=== PATIENT | male | born 1950 | race Caucasian/White ===

== ENCOUNTER → 2016-08-20 | Outpatient (CLI) | payer OTHER ==
[~2016-08-20] MED LIST: ALBUAER19 INH; ASPEC81 PO; ASPI325T45 PO; BIOF500T PO; BUSP5TAB59 PO; CHOL100027 PO; CHOLTAB3 PO; CLR10 PO; DILT0.05 PO; DOXE10CA PO; FLUT0.0529 NEB; FLUT0.15 NAE; GABA-112 PO; HYD50 PO; HYDR25TA5 PO; LYSI500C2 PO; MULT-225 PO; MULT-884 PEG; NALO1TAB PO; OXYC1TAB3 PO; SENN-61 PO; SERT50TA PO; SNG10 PO; VNTHFA/IN INH; ZLF/50 PO; ZOLP5TAB PO
--- NOTE | 2016-08-20 09:16 | DIAGNOSTIC IMAGING REPORT ---
CHEST 2 VIEWS ROUTINE CLINICAL HISTORY: Acute bronchitis. COMPARISON STUDY: No previous studies for comparison. FINDINGS: Lung volumes are normal. No consolidation is identified and there is no evidence of pulmonary edema. Cardiac size is at the upper limits of normal. No pneumothorax or pleural effusion is identified. A 9 mm nodular density projects over the right lower lung. IMPRESSION: 1. No acute cardiopulmonary findings. 2. 9 mm nodular density which projects over the right lower lung. This could reflect a nipple shadow or pulmonary nodule. Follow-up PA and shallow oblique radiographs of the chest with nipple markers are recommended. Electronically signed by: George Banegas M.D. 08/20/2016 9:14 AM
--- NOTE | 2016-08-20 14:33 | DIAGNOSTIC IMAGING REPORT ---
Chest including oblique views (3 views) CLINICAL HISTORY: Abnormal chest x-ray. Pulmonary nodule. COMPARISON STUDY: 08/20/2016 FINDINGS: The cardiac images all contours remain stable. The examination was performed with nipple markers. The recently described 9 mm right lower lung zone opacity corresponds the patient's right nipple. IMPRESSION: No active disease in the chest. The right lower lung zone opacity corresponds the patient's right nipple Electronically signed by: George Haskins M.D. 08/20/2016 2:31 PM
== END | disposition home or self-care (01) ==
LOC: C.RAD1850 09:00
PROVIDERS: ATTEND Internal Medicine
DX: J20.9 Acute bronchitis, unspecified (principal); R93.8 Abnormal findings on diagnostic imaging of other specified body structures

== ENCOUNTER → 2016-10-22 | Outpatient (CLI) | payer OTHER ==
[~2016-10-22] MED LIST changes: -DOXE10CA PO; -GABA-112 PO; -NALO1TAB PO; -OXYC1TAB3 PO; -SENN-61 PO
[2016-10-22 09:50] LABS: ALT/SGPT 30 U/L (12-78); AST/SGOT 15 U/L (15-37); BLOOD UREA NITROGEN 19 mg/dl (7-18); CALCIUM 9.2 mg/dl (8.5-10.1); CARBON DIOXIDE 30 mmol/L (21-32); CHLORIDE 105 mmol/L (98-107); GLUCOSE 110 mg/dl (70-99); POTASSIUM 4.4 mmol/L (3.5-5.1); SODIUM 141 mmol/L (136-145)
[2016-10-22 09:53] LABS: CHOLESTEROL 172 mg/dl (0-200); CHOLESTEROL/HDL RATIO 5.1; HDL CHOLESTEROL 34 mg/dl; LDL CHOLESTEROL CALCULATED 99 mg/dl; TRIGLYCERIDES 197 mg/dl (0-150); VERY LOW DENSITY LIPOPROT CALC 39 mg/dl
[2016-10-22 10:10] LABS: ESTIMATED AVERAGE GLUCOSE 111 mg/dl; HA1C FLAG Normal (Normal)
--- NOTE | 2016-10-28 12:59 | CODING QUERY MEDICAL NECESSITY ---
SUPPORTING DIAGNOSIS NEEDED A supporting diagnosis is required for the test/procedure performed on this patient in order for us to be reimbursed by the patient's insurance. Please provide a supporting diagnosis for the following test/procedure listed below next to the test name along with your signature. *If there is no additional diagnosis for this patient that would support the following test/procedure please document that below next to the test/procedure. Test(s)/Procedure(s) that require a supporting diagnosis: * GLYCATED HEMOGLOBIN DIAGNOSIS: * DOS: 10/22/16 Provider Signature: Date: Thank you Sammi Jones Health Information Management Once completed, please kindly fax back to [phone] For questions please call [phone]
== END | disposition home or self-care (01) ==
LOC: C.LAB1850 08:05
PROVIDERS: ATTEND Internal Medicine
DX: E78.1 Pure hyperglyceridemia (principal); I10 Essential (primary) hypertension; R73.03 Prediabetes

== ENCOUNTER 2017-04-27 23:50 | Inpatient (IN) | payer OTHER ==
[~2017-04-27] VITALS: Ht 182.9 cm; Wt 99.4 kg
[~2017-04-27 23:50] MED LIST changes: -ASPI325T45 PO; -CHOL100027 PO; -FLUT0.15 NAE; -HYDR25TA5 PO; -MULT-225 PO; -SNG10 PO; -VNTHFA/IN INH; -ZLF/50 PO
[2017-04-28] VITALS (7 sets, daily range): BP systolic 140–168; BP diastolic 80–88; PULSE 64–78; TEMP 36.9–37.1; O2SAT 91–95; Ht 182.9 cm; Wt 99.4 kg
[2017-04-28] MEDS ORDERED: HYDROmorphone INJ 1 MG/ML SYR IV STA (00:06)
[2017-04-28] MEDS ORDERED: SODIUM CHLORIDE 0.9% 1000ML 1,000 ML IV STA (00:06)
[2017-04-28] MEDS ORDERED: ONDANSETRON INJ 2 MG/ML 2 ML VIAL IV STA (00:06)
[2017-04-28] MEDS ORDERED: OPTIRAY 320 IV PRN (00:15)
--- NOTE | 2017-04-28 00:20 | EMERGENCY ROOM VISIT NOTE ---
History Report prepared by Marlo: Armand Barroso Under the Supervision of: Dr. Jossue Gardner M.D. First contact with patient: 00:00 Chief Complaint: ABDOMINAL PAIN Stated Complaint: STOMACH AND BACK PAIN History of Present Illness The patient is a 66 year old male who presents to the Emergency Room with complaints of worsening abdominal pain beginning a week ago. He currently rates his discomfort a 10/10 in severity. The patient states that his discomfort started in his back and radiated to his abdomen. He reports that he has a decreased appetite and nausea secondary to pain. The patient notes that he saw his doctor this morning and was told that his abdomen was "puffy" and report to the ED if symptoms worsened. He states that this evening he started vomiting, so he came to the ED. The patient denies hematemesis, diarrhea, rash, chemical exposure, leg edema, and hematochezia. He reports that he has an ultrasound of his abdomen scheduled on Thursday. The patient notes that he has a history of Hepatitis-C, went through all the treatment, and was declared cured. He states that he drinks a beer or two daily, and he does not drink more on the weekends. The patient reports that he does not have anything at home for pain, and he denies a history of abdominal surgeries. Source of History: patient Onset: week ago Position: abdomen Symptom Intensity: 10/10 Timing: worsening Associated Symptoms: + nausea (secondary to pain), + vomiting, + back pain, No hematochezia, No diarrhea, No rash Note: Denies: hematemesis, chemical exposure, and leg edema Review of Systems See HPI for pertinent positives & negatives. A total of 10 systems reviewed and were otherwise negative. Past Medical & Surgical Medical Problems: (1) Abdominal pain (2) Hepatic vein thrombosis (3) Hepatitis C Family History Patient reports no known family medical history. Social History Smoking Status: Current Some Day Smoker Alcohol Use: occasionally Marital Status: Housing Status: lives with significant other Occupation Status: retired Current/Historical Medications Scheduled Aspirin (Aspirin), 325 MG PO DAILY Bioflavonoid Products (Yue-C), 1 TAB PO DAILY Cholecalciferol (Vitamin D 1000 Unit), 1,000 INTER.UNIT PO DAILY Diltiazem HCl Coated Beads (Diltiazem HCl ER), 180 MG PO BID Fluticasone Propionate (Nasal) (Flonase Allergy Relief), 1-2 SPRAYS EFRA DAILY Hydrochlorothiazide (Hydrochlorothiazide), 25 MG PO DAILY Montelukast Sod (Montelukast Sodium), 10 MG PO DAILY Multiple Vitamin (Multi-Day Vitamins), 1 TAB PO DAILY Sertraline HCl (Sertraline HCl), 50 MG PO DAILY Scheduled PRN Albuterol Hfa (Ventolin Hfa), 1-2 PUFFS INH Q6H PRN for SOB/Wheezing Loratadine (Claritin), 10 MG PO DAILY PRN for allergies Zolpidem Tartrate (Ambien), 5 MG PO HS PRN for Insomnia Allergies Coded Allergies: No Known Allergies (Unverified , 04/27/17) Physical Exam Vital Signs Date Time Temp Pulse Resp B/P (MAP) Pulse Ox O2 Delivery O2 Flow Rate FiO2 04/28/17 03:09 68 18 137/82 92 04/28/17 03:02 68 18 137/82 92 Room Air 04/28/17 01:49 74 18 149/78 94 Room Air 04/27/17 23:53 36.6 82 18 164/83 95 Room Air Physical Exam GENERAL: Patient is uncomfortable appearing and in moderate distress. HEENT: No acute trauma, normocephalic atraumatic, mucous membranes moist, no nasal congestion, no scleral icterus. NECK: No stridor, no adenopathy, no meningismus, trachea is midline. LUNGS: No dyspnea. Clear to auscultation and equal bilaterally. No wheeze, no rhonchi. HEART: Regular rate and rhythm. No murmurs, rubs, gallops appreciated. ABDOMEN: Soft with vague bilateral lower abdominal tenderness upon palpation, bowel sounds positive, no masses appreciated, no peritonitis. BACK: No midline tenderness, no CVA tenderness EXTREMITIES: Normal motion all extremities, no cyanosis, no edema. NEUROLOGIC: Alert and oriented, no acute motor or sensory deficits, no focal weakness, cranial nerves grossly intact. SKIN: No rash, no jaundice, no diaphoresis. Medical Decision & Procedures ER Provider Diagnostic Interpretation: CT results as stated below per interpretation by me and the radiologist: Impression: Thrombus noted with the portal vein confluence extending throughout the right anterior and posterior portal veins. There is an ill-defined geographic hypodensity within the right hepatic lobe concerning for possible HCC given the cirrhotic appearing liver. This could be further evaluated with liver protocol CT or MRI with contrast. Addition finding: Visualized lower thorax demonstrates dependent atelectasis with small hiatal hernia. Layering density within the gallbladder lumen which may represent stones and/or sludge. Punctate calcification within the spleen which is mildly prominent. Pancreas and adrenal glands are unremarkable. Probable cysts within both kidneys. No hydronephrosis. Urinary bladder is unremarkable. Appendix is unremarkable. Small bowel and colon are unremarkable. Trace free fluid within the pelvis. Evidence of prior right herniorrhaphy. No acute osseous abnormality. Radiologist: Matt Mosie MD Study ready at 0100 and initial results transmitted at 0121. Laboratory Results 04/28/17 00:20 Red Blood Count 4.58, Mean Corpuscular Volume 92.4, Mean Corpuscular Hemoglobin 30.8, Mean Corpuscular Hemoglobin Concent 33.3, Mean Platelet Volume 10.2, Neutrophils (%) (Auto) 75.0, Lymphocytes (%) (Auto) 14.4, Monocytes (%) (Auto) 7.9, Eosinophils (%) (Auto) 2.0, Basophils (%) (Auto) 0.3, Neutrophils # (Auto) 7.58, Lymphocytes # (Auto) 1.45, Monocytes # (Auto) 0.80, Eosinophils # (Auto) 0.20, Basophils # (Auto) 0.03 04/28/17 00:20 Test 04/28/17 00:20 White Blood Count 10.10 K/uL (4.8-10.8) Red Blood Count 4.58 M/uL (4.7-6.1) Hemoglobin 14.1 g/dL (14.0-18.0) Hematocrit 42.3 % (42-52) Mean Corpuscular Volume 92.4 fL (80-100) Mean Corpuscular Hemoglobin 30.8 pg (25-34) Mean Corpuscular Hemoglobin Concent 33.3 g/dl (32-36) Platelet Count 213 K/uL (130-400) Mean Platelet Volume 10.2 fL (7.4-10.4) Neutrophils (%) (Auto) 75.0 % Lymphocytes (%) (Auto) 14.4 % Monocytes (%) (Auto) 7.9 % Eosinophils (%) (Auto) 2.0 % Basophils (%) (Auto) 0.3 % Neutrophils # (Auto) 7.58 K/uL (1.4-6.5) Lymphocytes # (Auto) 1.45 K/uL (1.2-3.4) Monocytes # (Auto) 0.80 K/uL (0.11-0.59) Eosinophils # (Auto) 0.20 K/uL (0-0.5) Basophils # (Auto) 0.03 K/uL (0-0.2) RDW Standard Deviation 47.8 fL (36.4-46.3) RDW Coefficient of Variation 14.0 % (11.5-14.5) Immature Granulocyte % (Auto) 0.4 % Immature Granulocyte # (Auto) 0.04 K/uL (0.00-0.02) Prothrombin Time 10.8 SECONDS (9.0-12.0) Prothromb Time International Ratio 1.0 (0.9-1.1) Activated Partial Thromboplast Time 26.4 SECONDS (21.0-31.0) Partial Thromboplastin Ratio 1.0 Anion Gap 9.0 mmol/L (3-11) Est Creatinine Clear Calc Drug Dose 89.3 ml/min Estimated GFR () 92.1 Estimated GFR (Non- 79.5 BUN/Creatinine Ratio 16.6 (10-20) Calcium Level 9.3 mg/dl (8.5-10.1) Total Bilirubin 1.3 mg/dl (0.2-1) Direct Bilirubin 0.6 mg/dl (0-0.2) Aspartate Amino Transf (AST/SGOT) 189 U/L (15-37) Alanine Aminotransferase (ALT/SGPT) 218 U/L (12-78) Alkaline Phosphatase 343 U/L (45-117) Total Protein 7.7 gm/dl (6.4-8.2) Albumin 4.0 gm/dl (3.4-5.0) Lipase 152 U/L (73-393) Laboratory results as reviewed by me. Medications Administered Medications (Trade) Dose Ordered Sig/Lizandro Route Start Time Stop Time Status Last Admin Dose Admin Hydromorphone HCl (Dilaudid Inj) 1 mg NOW STAT IV 04/28/17 00:06 04/28/17 00:07 DC 04/28/17 00:24 1 MG Ondansetron HCl (Zofran Inj) 4 mg NOW STAT IV 04/28/17 00:06 04/28/17 00:07 DC 04/28/17 00:23 4 MG Sodium Chloride 1,000 ml @ 999 mls/hr Q1H1M STAT IV 04/28/17 00:06 04/28/17 01:06 DC 04/28/17 00:23 999 MLS/HR Heparin Sodium/ Dextrose 1 ea Q15M N/A 04/28/17 02:40 05/28/17 02:39 04/28/17 02:40 1 EA Heparin Sodium/ Dextrose (Heparin 25,000 Unit/500ml D5W) 25,000 unit STK-MED ONCE .ROUTE 04/28/17 02:56 04/28/17 02:57 DC 04/28/17 03:00 25,000 UNIT ED Course 0001: The patient was evaluated in room B10. A complete history and physical exam was performed. 0006: Ordered Sodium Chloride 1000 ml @ 999 mls/hr IV, Ondansetron HCl 4mg IV, Hydromorphone HCl 1mg IV 0119: I reevaluated the patient, and he is feeling better. I discussed current exam findings with the patient. 0126: I discussed the patient's case with Dr. Chaudhary [facility] Hospitalist. We discussed speaking with GI prior to evaluation. 0137: I discussed the patient's case with MICHOACANO Rodgers. He agrees with beginning work-up here, and the patient will be seen later today. 0141: Upon reevaluation, the patient is feeling better and resting. Discussed results and treatment plan with the patient. He verbalized understanding and agreement with the treatment plan. The patient will be evaluated for further management. 0216: I updated Dr. Chaudhary [facility] Hospitalist about the consult with MICHOACANO Rodgers. The patient will be evaluated for further treatment. Medical Decision Differential: Diverticulitis, Appendicitis, PUD/Gastritis, Biliary Pathology, Renal Colic, Bowel Obstruction, Aortic Pathology, amongst other pathologies entertained. 66 yr old male arrives with complaint of bilateral lower abdominal pain radiating to rest of abdomen as well as feeling of bloating of abdomen. Exam with some lower abdo TTP though not peritonitis. Labs from earlier with elevated LFTs which repeat here is similar. CT done given symptoms and abnormal labs resulting in findings of portal vein thrombus as well as possible right liver lobe HCC. With his history of Hep C, etoh, clot and findings in liver I am quite concerned this is cancer. I explained findings to patient and need for further work-up to determine exactly what is going on. He is agreeable to staying in hospital. Reviewed with GI who agree with initial work- up can be done here. Hospitalist to bring in for further work-up/treatment and will manage anticoagulation. Medication Reconcilliation Current Medication List: was personally reviewed by me Blood Pressure Screening Patient's blood pressure: Elevated blood pressure Monitored by hospitalist. Consults Time Called: 0125 Consulting Physician: Dr. Chaudhary [facility] Hospitalist Returned Call: 0126 I discussed the patient's case with Dr. Chaudhary [facility] Hospitalist. We discussed speaking with GI prior to evaluation. 0216: I updated Dr. Chaudhary [facility] Hospitalist about the consult with MICHOACANO Rodgers. The patient will be evaluated for further treatment. Additional Consults: Time Called: 0128 Consulted Physician: MICHOACANO Rodgers Returned Call: 0137 Additional Comments: I discussed the patient's case with MICHOACANO Rodgers. He agrees with beginning work-up here, and the patient will be seen later today. Impression Primary Impression: Portal vein thrombosis Additional Impressions: Liver mass Elevated LFTs Scribe Attestation The scribe's documentation has been prepared under my direction and personally reviewed by me in its entirety. I confirm that the note above accurately reflects all work, treatment, procedures, and medical decision making performed by me. Departure Information Dispostion Being Evaluated By Hospitalist Referrals Mario Alberto Stevens M.D. (PCP) Patient Instructions [facility] Problem Qualifiers
[2017-04-28 00:38] LABS: BASO % 0.3 %; BASO ABS # 0.03 K/uL (0-0.2); COMPLETE YES; HEMATOCRIT 42.3 % (42-52); IG% 0.4 %; LYMPH % 14.4 %; LYMPH ABS # 1.45 K/uL (1.2-3.4); MEAN CELL VOLUME 92.4 fL (80-100); MEAN CORPUSCULAR HEMOGLOBIN 30.8 pg (25-34); MEAN CORPUSCULAR HGB CONC 33.3 g/dl (32-36); MEAN PLATELET VOLUME 10.2 fL (7.4-10.4); MONO % 7.9 %; PLATELET COUNT 213 K/uL (130-400); RED BLOOD COUNT 4.58 M/uL (4.7-6.1)
[2017-04-28 00:53] LABS: PROTHROMBIN TIME (PATIENT) 10.8 SECONDS (9.0-12.0)
[2017-04-28 01:03] LABS: BUN/CREATININE RATIO 16.6 (10-20); CALCIUM 9.3 mg/dl (8.5-10.1); CREATININE 0.98 mg/dl (0.60-1.40); POTASSIUM 3.2 mmol/L (3.5-5.1)
[2017-04-28] MEDS ORDERED: ASPI325T45 PO (01:40)
[2017-04-28] MEDS ORDERED: ZLF/50 PO (01:43)
[2017-04-28] MEDS ORDERED: HYDR25TA5 PO (01:43)
[2017-04-28] MEDS ORDERED: SNG10 PO (01:43)
[2017-04-28] MEDS ORDERED: MULT-225 PO (01:45)
[2017-04-28] MEDS ORDERED: CHOL100027 PO (01:45)
[2017-04-28] MEDS ORDERED: FLUT0.15 NAE (01:46)
[2017-04-28] MEDS ORDERED: VNTHFA/IN INH (01:47)
[2017-04-28] MEDS ORDERED: POLYETHYLENE (MIRALAX) 17 GM PACK PO PRN (02:30)
[2017-04-28] MEDS ORDERED: ALUMINUM/MAGNESIUM/SIMETH (MAALOX MAX) 30 ML UDC PO PRN (02:30)
[2017-04-28] MEDS ORDERED: ACETAMINOPHEN 325 MG TAB PO PRN (02:30)
[2017-04-28] MEDS ORDERED: ALBUTEROL HFA 8 GM INHALER INH PRN (02:30)
[2017-04-28] MEDS ORDERED: LORATADINE 10 MG TAB PO PRN (02:30)
[2017-04-28] MEDS ORDERED: ZOLPIDEM TARTRATE 5 MG TAB PO PRN (02:30)
[2017-04-28] MEDS ORDERED: HEPARIN SOD 5000 UNIT/0.5 ML CARP SQ SCH (02:30)
[2017-04-28] MEDS ORDERED: MAGNESIUM HYDROXIDE SUSP 30 ML UDC PO PRN (02:30)
[2017-04-28] MEDS ORDERED: ONDANSETRON INJ 2 MG/ML 2 ML VIAL IV PRN (02:30)
[2017-04-28] MEDS ORDERED: HEPARIN 25000 UNIT/500 ML D5W ONE (02:56)
--- NOTE | 2017-04-28 03:01 | History and Physical ---
History & Physical Date & Time of Service: Apr 28, 2017 at 02:43 Chief Complaint: Stomach And Back Pain Primary Care Physician: Mario Alberto Stevens M.D. History of Present Illness Source: patient 66 y/o M Hx HTN, asthma, Hep C - curative treatment completed in 2004, cirrhosis. Pt presents with lower quadrant abdominal pain which has been present and progressive for > 1 weeK. He denies diarrhea, vomiting or fevers, admits to nausea. A CT abdomen was obtained in the ER revealing portal vein thrombosis, cirrhosis and concern for hepatocellular CA. Past Medical/Surgical History Medical Problems: (1) Hepatitis C - treated in 2004 - unsure of agent which was used - likely interferon at that time Status: Resolved 2) HTN 3) Asthma 4) Hernia repair Family History Patient reports no known family medical history. Father due to an MVA at a young age Mother due to a CVA in her 80s Social History Pt smokes a few cigarettes or a cigar daily - drink 1-2 beers daily Smoking Status: Current Some Day Smoker Marital Status: Occupational Status: retired Multi-Drug Resistant Organisms History of MDRO: No Allergies Coded Allergies: No Known Allergies (Unverified , 04/27/17) Home Medications Scheduled Aspirin (Aspirin), 325 MG PO DAILY Bioflavonoid Products (Yue-C), 1 TAB PO DAILY Cholecalciferol (Vitamin D 1000 Unit), 1,000 INTER.UNIT PO DAILY Diltiazem HCl Coated Beads (Diltiazem HCl ER), 180 MG PO BID Fluticasone Propionate (Nasal) (Flonase Allergy Relief), 1-2 SPRAYS EFRA DAILY Hydrochlorothiazide (Hydrochlorothiazide), 25 MG PO DAILY Montelukast Sod (Montelukast Sodium), 10 MG PO DAILY Multiple Vitamin (Multi-Day Vitamins), 1 TAB PO DAILY Sertraline HCl (Sertraline HCl), 50 MG PO DAILY Scheduled PRN Albuterol Hfa (Ventolin Hfa), 1-2 PUFFS INH Q6H PRN for SOB/Wheezing Loratadine (Claritin), 10 MG PO DAILY PRN for allergies Zolpidem Tartrate (Ambien), 5 MG PO HS PRN for Insomnia Review of Systems Constitutional: No fever, No chills, No sweats Eyes: No worsening of vision ENT: No hearing loss, No unusual epistaxis, No nasal symptoms Respiratory: No cough, No sputum, No wheezing Cardiovascular: No chest pain, No orthopnea, No PND Abdomen: + pain, + nausea, No vomiting, No diarrhea Musculoskeletal: No joint pain Genitourinary - Male: No hematuria, No dysuria Physical Exam Vital Signs Date Time Temp Pulse Resp B/P (MAP) Pulse Ox O2 Delivery O2 Flow Rate FiO2 04/28/17 01:49 74 18 149/78 94 Room Air 04/27/17 23:53 36.6 82 18 164/83 95 Room Air General Appearance: WD/WN, no apparent distress Head: normocephalic Eyes: normal inspection, EOMI ENT: normal ENT inspection, pharynx normal Neck: supple, no JVD Respiratory/Chest: chest non-tender, lungs clear, normal breath sounds Cardiovascular: regular rate, rhythm, no edema, no gallop, no JVD, no murmur Abdomen/GI: normal bowel sounds, soft, + tenderness (mild in lower quadrants) Back: normal inspection, no CVA tenderness, no muscle spasm Neurologic/Psych: english drawer II-XII nml as tested, no motor/sensory deficits, alert, normal mood/affect, normal reflexes, oriented x 3 Skin: normal color, warm/dry Diagnostics Laboratory Results Results Past 24 Hours Test 04/28/17 00:20 Range/Units White Blood Count 10.10 4.8-10.8 K/uL Red Blood Count 4.58 4.7-6.1 M/uL Hemoglobin 14.1 14.0-18.0 g/dL Hematocrit 42.3 42-52 % Mean Corpuscular Volume 92.4 80-100 fL Mean Corpuscular Hemoglobin 30.8 25-34 pg Mean Corpuscular Hemoglobin Concent 33.3 32-36 g/dl Platelet Count 213 130-400 K/uL Mean Platelet Volume 10.2 7.4-10.4 fL Neutrophils (%) (Auto) 75.0 % Lymphocytes (%) (Auto) 14.4 % Monocytes (%) (Auto) 7.9 % Eosinophils (%) (Auto) 2.0 % Basophils (%) (Auto) 0.3 % Neutrophils # (Auto) 7.58 1.4-6.5 K/uL Lymphocytes # (Auto) 1.45 1.2-3.4 K/uL Monocytes # (Auto) 0.80 0.11-0.59 K/uL Eosinophils # (Auto) 0.20 0-0.5 K/uL Basophils # (Auto) 0.03 0-0.2 K/uL RDW Standard Deviation 47.8 36.4-46.3 fL RDW Coefficient of Variation 14.0 11.5-14.5 % Immature Granulocyte % (Auto) 0.4 % Immature Granulocyte # (Auto) 0.04 0.00-0.02 K/uL Prothrombin Time 10.8 9.0-12.0 SECONDS Prothromb Time International Ratio 1.0 0.9-1.1 Activated Partial Thromboplast Time 26.4 21.0-31.0 SECONDS Partial Thromboplastin Ratio 1.0 Sodium Level 138 136-145 mmol/L Potassium Level 3.2 3.5-5.1 mmol/L Chloride Level 104 98-107 mmol/L Carbon Dioxide Level 25 21-32 mmol/L Anion Gap 9.0 3-11 mmol/L Blood Urea Nitrogen 16 7-18 mg/dl Creatinine 0.98 0.60-1.40 mg/dl Est Creatinine Clear Calc Drug Dose 89.3 ml/min Estimated GFR () 92.1 Estimated GFR (Non- 79.5 BUN/Creatinine Ratio 16.6 10-20 Random Glucose 119 70-99 mg/dl Calcium Level 9.3 8.5-10.1 mg/dl Total Bilirubin 1.3 0.2-1 mg/dl Direct Bilirubin 0.6 0-0.2 mg/dl Aspartate Amino Transf (AST/SGOT) 189 15-37 U/L Alanine Aminotransferase (ALT/SGPT) 218 12-78 U/L Alkaline Phosphatase 343 45-117 U/L Total Protein 7.7 6.4-8.2 gm/dl Albumin 4.0 3.4-5.0 gm/dl Lipase 152 73-393 U/L Diagnostic Radiology CT abdomen: Portal vein thrombosis Cirrhosis Possible lesion (HCC) in R lobe of liver Impression Assessment and Plan 66 y/o M Hx HTN, asthma, Hep C - curative treatment completed in 2004, cirrhosis. Pt presents with lower quadrant abdominal pain which has been present and progressive for > 1 weeK. He denies diarrhea, vomiting or fevers, admits to nausea. A CT abdomen was obtained in the ER revealing portal vein thrombosis, cirrhosis and concern for hepatocellular CA. 1) Portal vein thrombosis - pt placed on Heparin, GI consult requested 2) Concern for hepatocellular CA - we will obtain a dedicated liver MRI - GI is consulted 3) HTN - HCTZ held pending AM reevaluation - cont Diltiazem 4) Cirrhosis - pt was not aware of this - likely due to previous hep C - f/u with GI - does not currently display stigmata of advanced cirrhosis Full code - full dose Heparin Total time for this admit including review of labs, meds, imaging - discussion with pt and ER attending - 37 min Level of Care Med/Surg Resuscitation Status FULL RESUSCITATION VTE Prophylaxis VTE Risk Assessment Done? Y/N: Yes Risk Level: High Given or contraindicated: Unfractionated heparin SQ
[2017-04-28 03:59] LABS: URINE APPEARANCE CLEAR (CLEAR); URINE BILIRUBIN NEG (NEG); URINE COLOR DK YELLOW; URINE EPITHELIAL CELL AUTO 0-5 /lpf (0-5); URINE NITRITE NEG (NEG); URINE PH 5.5 (4.5-7.5); URINE SPECIFIC GRAVITY > 1.045 (1.000-1.030); UROBILINOGEN NEG (NEG); ZZUR CULT IF INDIC CLEAN CATCH NO
[2017-04-28 04:02] LABS: MANUAL MICROSCOPIC REQUIRED? NO; REVIEW REQ? NO
[2017-04-28] MEDS ORDERED: MAGNESIUM SULFATE 1GM / D5W 1 GM in PREMIXED IN D5W 100 ML IV ONE (04:30)
[2017-04-28] MEDS ORDERED: NSS + 20MEQ KCL 1000ML 1,000 ML IV SCH (04:30)
[2017-04-28] MEDS: HYDROmorphone INJ 1 MG/ML SYR IV PRN ×5 (04:47→21:52)
[2017-04-28] MEDS: POTASSIUM CHLR 10 MEQ / WTR 10 MEQ in PREMIXED WATER 100 ML IV SCH ×7 (06:05→14:51)
[2017-04-28] MEDS: HEPARIN 25,000 UNIT/500ML D5W 500 ML IV PRN ×4 (07:02→23:19)
--- NOTE | 2017-04-28 07:34 | DIAGNOSTIC IMAGING REPORT ---
ABD/PELVIS IV CONTRAST ONLY CLINICAL HISTORY: 66 years-old Male presenting with Diffuse lower abdominal pain x 1 wk. TECHNIQUE: Multidetector CT of the abdomen and pelvis was performed after the administration of intravenous contrast. IV contrast: 93 mL of Optiray 320. A dose lowering technique was used consistent with the principles of ALARA (as low as reasonably achievable). COMPARISON: None. CT DOSE (mGy.cm): The estimated cumulative dose is 902.77 mGy.cm. FINDINGS: [employer] topogram: Unremarkable. Lung bases: Irregular solid nodular opacity measuring 14 mm in the lingula (series 3 image 41). Minimal dependent changes likely atelectasis. Normal heart size. No pericardial or pleural effusion. Nonspecific prominent pericardial lymph node. Liver: Normal liver morphology. Ill-defined heterogeneous hypodensity in the right hepatic lobe with enhancing tumor thrombus within the right portal vein extending into the left and main portal veins. Tumor thrombus expands the associated veins. Examination is limited by a single phase of contrast, and discrete margins of a mass are not appreciable. Hepatic veins patent. Multiple small hypodensities noted in the left hepatic lobe, likely hepatic cysts or hamartomas. Biliary: Branching hypodensities in the liver likely in part relate to mild multifocal intrahepatic biliary ductal dilatation. Hyperdensity within the central bile ducts could also suggest the inspissated bile or enhancing soft tissue. In contradistinction, the distal common duct demonstrates normal fluid attenuation. Gallbladder contains sludge. Pancreas: Normal parenchyma. Trace fluid in the left anterior para renal space without significant peripancreatic inflammatory change, nonspecific. No pancreatic ductal dilatation. Spleen: Top normal in size measuring nearly 13 cm in maximal sagittal dimension. Adrenal glands: Normal. Kidneys and ureters: Multiple hypodensities in the kidneys likely simple cysts. No hydronephrosis. Normal ureters. Bladder: Incompletely evaluated secondary to underdistention. Pelvic organs: Prostate and seminal vesicles normal. Bowel: Normal appendix. No bowel obstruction. Small hiatal hernia. Peritoneal cavity: Small amount of retroperitoneal fluid most pronounced in the left anterior perineal space but also noted more inferiorly bilaterally and minimally in the pelvis. No free intraperitoneal gas or fluid. Vasculature: Atherosclerosis of the normal caliber abdominal aorta. IVC patent. Lymph nodes: Multiple prominent lymph nodes in the portacaval and aortocaval regions, measuring up to 8 mm in the short axis (series 3 image 134). A lymph node in the gastrohepatic region measures up to 8 mm in short axis as well. Abdominal wall: Evidence of mesh hernia repair in the right lower quadrant/right inguinal region. Musculoskeletal: Degenerative changes of the spine. IMPRESSION: 1. Extensive tumor thrombus within the right portal vein extending into the left and main portal veins. Evaluation for discrete margins of an intrahepatic mass is limited given the single phase of contrast. Within this limitation, this is highly concerning for hepatocellular carcinoma. The presence of multifocal intrahepatic biliary ductal dilatation could raise suspicion for cholangiocarcinoma or hepatocholangiocarcinoma, although the presence of intrahepatic biliary ductal dilatation is more likely related to mass effect from tumor thrombus at the liver hilum on the biliary confluence. Dedicated liver imaging with CT or MR is recommended to better stage disease burden. 2. Hyperdense material within the central bile ducts could suggest inspissated bile or enhancing soft tissue. This could also be better evaluated with dedicated liver imaging. 3. Borderline enlarged upper abdominal lymph nodes. 4. Nonspecific trace retroperitoneal fluid. The etiology for this is not immediately clear. Correlate with lipase to exclude pancreatitis. 5. Irregular solid nodule measuring 14 mm in the lingula. Follow-up per Donna Society 2017 recommendations below. Please refer to below summary of Fleischner Society 2017 recommendations for follow-up of incidental CT nodules (H Frederic, et al. Guidelines for management of incidental pulmonary nodules detected on CT images: From the Fleischner Society 2017. Radiology 2017; 284: 228-243.) SOLID NODULES Single nodule; size <6 mm * Low risk patients: No routine follow-up * High risk patients: Optional CT at 12 months Single nodule; size 6-8 mm * Low risk patients: CT at 6-12 months, then consider CT at 18-24 months * High risk patients: CT at 6-12 months, then at 18-24 months Single nodule; size >8 mm * Either low or high risk patients: Considered CT at 3 months, PET/CT, or tissue sampling Multiple nodules; size <6 mm * Low risk patients: No routine follow up * High risk patients: Optional CT at 12 months Multiple nodules; size 6-8 mm * Low risk patients: CT at 3-6 months, then consider CT at 18-24 months * High risk patients: CT at 3-6 months, then at 18-24 months Multiple nodules; size >8 mm * Low risk patients: CT at 3-6 months, then consider at 18-24 months * High risk patients: CT at 3-6 months, then at 18-24 months Note: These guidelines apply to incidental nodules. These guidelines did not apply to patients younger than 35 years, immunocompromised patients, or patients with cancer. * Low risk patients: Minimal or absent history of smoking and/or other known risk factors * High risk patients: History of smoking, exposure to other carcinogens, emphysema, fibrosis, upper lobe location, family history of lung cancer, etc. * If a nodule up to 8 mm is partly solid or is ground glass further follow-up is required after 24 months to exclude possible slow growing adenocarcinoma SUBSOLID NODULES Single ground-glass nodule * Nodule size < 6 mm: No routine follow-up * Nodule size > or = 6 mm: CT at 6-12 months to confirm persistence, then CT every 2 years until 5 years Single part-solid nodule * Nodule size < 6 mm: No routine follow-up * Nodules size > or = 6 mm: CT at 3-6 months to confirm persistence. If unchanged and solid component remains < 6 mm, annual CT should be performed for 5 years Multiple nodules * Nodule size < 6 mm: CT at 3-6 months. If stable, consider CT at 2 and 4 years. * Nodules size > or = 6 mm: CT at 3-6 months. Subsequent management based on the most suspicious nodule(s) Electronically signed by: Dennys Luis M.D. 04/28/2017 7:32 AM Dictated Date/Time: 04/28/2017 7:17 AM
[2017-04-28] MEDS ORDERED: SERTRALINE HCL 50 MG TAB PO SCH (09:00)
[2017-04-28] MEDS ORDERED: MONTELUKAST SOD 10 MG TAB PO SCH (09:00)
[2017-04-28] MEDS: HYDROCHLOROTHIAZIDE 25 MG TAB PO SCH ×2 (09:00→17:33)
[2017-04-28] MEDS: DILTIAZEM HCL 180 MG ER CAP PO SCH ×2 (09:00→17:32)
[2017-04-28 09:54] LABS: PARTIAL THROMBOPLASTIN RATIO 1.7
--- NOTE | 2017-04-28 10:09 | Gastrointestinal Consultation ---
Gastrointestinal Consultation Date of Consultation: Apr 28, 2017 Attending Physician: Dr. Chaudhary Consulting Physician: Dr. Fajardo/FREDERICK Murray Reason for Consultation: Portal vein thrombosis History of Present Illness Patient is a 66 year old male with a history of hepatitis C, genotype IA previously seen and treated by Dr. Goldberg. He was prescribed interferon and ribavirin initially with partial response but unfortunately had a relapse. He was then considered for retreatment with triple therapy with Incivek which Dr. Goldberg prescribed at the end of 2010. He had completed a 12 week course of Incivek with a full 48 week course of Pegasys and ribavirin. In doing so, he was able to achieve SVR. He did have a RNA quantitative which was undetectable in 2012 and 2014. He has also been noted to have normal liver panel since that time as well. He was evaluated by his PCP yesterday, however with reports of abdominal pain for approximately one week. Liver panel was drawn and he was noted to have elevated hepatic transaminases as follows: ALT 242, AST 194, and ALP 318. Patient was advised ER evaluation. Upon arrival, he did undergo a CT a/ p with IV enhancement that demonstrated ". Ill-defined heterogeneous hypodensity in the right hepatic lobe with enhancing tumor thrombus within the right portal vein extending into the left and main portal veins". Liver morphology appeared normal. Liver panel remains elevated as follows: TB 1.3, DB 0.6, ALT 189, AST 218, and ALP 343. Albumin, PT/INR and platelets were normal. Currently, he denies any abdominal pain, nausea or vomiting, jaundice, pruritus , dark urine, acholic stools, melena, hematochezia or fatigue. Risk factors: alcohol use and recent heavy NSAID use. Past Medical/Surgical History Medical Problems: (1) Elevated LFTs Status: Acute (2) Liver mass Status: Acute (3) Portal vein thrombosis Status: Acute Past Medical History: 1. Hepatitis C 2. Hypertension 3. Asthma Past Surgical History: 1. Complete colonoscopy 2. Hernia repair Family History Patient reports no known family medical history. Negative for GI malignancy or IBD Social History Smoking Status: Current Every Day Smoker Alcohol Use: occasionally Marital Status: Housing Status: lives with significant other Occupation Status: retired Allergies Coded Allergies: No Known Allergies (Unverified , 04/27/17) Current Medications Home Meds and Scripts Medications Dose Route/Sig Max Daily Dose Days Date Category Ventolin Hfa (Albuterol) 200 Puffs/33737 Mcg Aers 1-2 Puffs INH Q6H PRN 04/28/17 Reported Flonase Allergy Relief (Fluticasone Propionate (Nasal)) 50 Mcg/Act Spr 1-2 Sprays EFRA DAILY 04/28/17 Reported Vitamin D 1000 Unit (Cholecalciferol) 1,000 Unit Cap 1,000 Inter.unit PO DAILY 04/28/17 Reported Multi-Day Vitamins (Multiple Vitamin) 1 Tab Tab 1 Tab PO DAILY 30 04/28/17 Reported Sertraline HCl 50 Mg Tab 50 Mg PO DAILY 04/28/17 Reported Hydrochlorothiazide 25 Mg Tab 25 Mg PO DAILY 04/28/17 Reported Montelukast Sodium (Montelukast Sod) 10 Mg Tab 10 Mg PO DAILY 04/28/17 Reported Aspirin 325 Mg Tab 325 Mg PO DAILY 04/28/17 Reported Ambien (Zolpidem Tartrate) 5 Mg Tab 5 Mg PO HS PRN 12/06/14 Reported Yue-C (Bioflavonoid Products) 1 Tab Tab 1 Tab PO DAILY 12/06/14 Reported Diltiazem HCl ER (Diltiazem HCl Coated Beads) 180 Mg Tab 180 Mg PO BID 12/06/14 Reported Claritin (Loratadine) 10 Mg Tab 10 Mg PO DAILY PRN 07/22/08 Reported Review of Systems See HPI for pertinent positives & negatives. A total of 10 systems reviewed and were otherwise negative. Physical Exam Date Time Temp Pulse Resp B/P (MAP) Pulse Ox O2 Delivery O2 Flow Rate FiO2 04/28/17 07:20 36.9 68 18 149/84 (105) 95 Room Air 04/28/17 07:10 Room Air 04/28/17 03:20 Room Air 04/28/17 03:20 37.1 78 16 148/80 (102) 92 Room Air 04/28/17 03:20 Room Air 04/28/17 03:09 68 18 137/82 92 04/28/17 03:02 68 18 137/82 92 Room Air 04/28/17 01:49 74 18 149/78 94 Room Air 04/27/17 23:53 36.6 82 18 164/83 95 Room Air General Appearance: WD/WN, no apparent distress Eyes: EOMI ENT: hearing grossly normal Neck: supple Respiratory/Chest: lungs clear, normal breath sounds, no respiratory distress Cardiovascular: regular rate, rhythm, no gallop, no murmur Abdomen: normal bowel sounds, non tender, soft Extremities: no pedal edema Neurologic/Psych: alert, normal mood/affect, oriented x 3 Skin: no jaundice, warm/dry Laboratory Results Last 24 Hours Test 04/28/17 00:20 04/28/17 03:50 04/28/17 09:13 White Blood Count 10.10 K/uL Red Blood Count 4.58 M/uL Hemoglobin 14.1 g/dL Hematocrit 42.3 % Mean Corpuscular Volume 92.4 fL Mean Corpuscular Hemoglobin 30.8 pg Mean Corpuscular Hemoglobin Concent 33.3 g/dl Platelet Count 213 K/uL Mean Platelet Volume 10.2 fL Neutrophils (%) (Auto) 75.0 % Lymphocytes (%) (Auto) 14.4 % Monocytes (%) (Auto) 7.9 % Eosinophils (%) (Auto) 2.0 % Basophils (%) (Auto) 0.3 % Neutrophils # (Auto) 7.58 K/uL Lymphocytes # (Auto) 1.45 K/uL Monocytes # (Auto) 0.80 K/uL Eosinophils # (Auto) 0.20 K/uL Basophils # (Auto) 0.03 K/uL RDW Standard Deviation 47.8 fL RDW Coefficient of Variation 14.0 % Immature Granulocyte % (Auto) 0.4 % Immature Granulocyte # (Auto) 0.04 K/uL Prothrombin Time 10.8 SECONDS Prothromb Time International Ratio 1.0 Activated Partial Thromboplast Time 26.4 SECONDS Partial Thromboplastin Ratio 1.0 Sodium Level 138 mmol/L Potassium Level 3.2 mmol/L Chloride Level 104 mmol/L Carbon Dioxide Level 25 mmol/L Anion Gap 9.0 mmol/L Blood Urea Nitrogen 16 mg/dl Creatinine 0.98 mg/dl Est Creatinine Clear Calc Drug Dose 89.3 ml/min Estimated GFR () 92.1 Estimated GFR (Non- 79.5 BUN/Creatinine Ratio 16.6 Random Glucose 119 mg/dl Calcium Level 9.3 mg/dl Total Bilirubin 1.3 mg/dl Direct Bilirubin 0.6 mg/dl Aspartate Amino Transf (AST/SGOT) 189 U/L Alanine Aminotransferase (ALT/SGPT) 218 U/L Alkaline Phosphatase 343 U/L Total Protein 7.7 gm/dl Albumin 4.0 gm/dl Lipase 152 U/L Urine Color DK YELLOW Urine Appearance CLEAR Urine pH 5.5 Urine Specific [place] > 1.045 Urine Protein NEG Urine Glucose (UA) NEG Urine Ketones NEG Urine Occult Blood NEG Urine Nitrite NEG Urine Bilirubin NEG Urine Urobilinogen NEG Urine Leukocyte Esterase NEG Urine WBC (Auto) 1-5 /hpf Urine RBC (Auto) 0-4 /hpf Urine Hyaline Casts (Auto) 1-5 /lpf Urine Epithelial Cells (Auto) 0-5 /lpf Urine Bacteria (Auto) NEG Impression Patient is a 66 year old male with a history of hepatitis C status post treatment with triple therapy in admitted with elevated hepatic transaminases as well as abnormal CT imaging suggestive for liver mass with portal vein thrombosis. Plan 1. Check status of hepatitis serologies including acute hep A and B and will obtain a hepatitis C RNA quant. 2. Check AFP. 3. Agree with MRI of liver for further evaluation. 4. Avoid liver toxins such as alcohol and NSAIDs. 5. Patient may need to be evaluated by a hepatobiliary surgeon pending results of MRI. 6. Continue anticoagulation as ordered. 7. Supportive medical management. Thank you for allowing us to participate in the care of this pleasant patient. If you have any questions or concerns, please do not hesitate to contact us. Agree with FREDERICK Murray as above Abd: Soft, NT, ND, +BS Discussed results of MRI with patient Will need biopsy of liver mass If it is able to be performed at [facility], then will proceed, otherwise will need transfer for IR and Surgery evaluation
[2017-04-28] MEDS ORDERED: HEPARIN IV BOLUS 3,000 UNIT in SYRINGE 0 ML IV SCH (10:15)
--- NOTE | 2017-04-28 13:03 | DIAGNOSTIC IMAGING REPORT ---
MRI LIVER COMBO CLINICAL HISTORY: Portal vein thrombus. Possible hepatocellular carcinoma. TECHNIQUE: Imaging was performed prior to and following IV contrast injection. The patient was imaged before and after the administration of 10 cc of intravenous Eovist COMPARISON STUDY: CT scan dated 04/28/2017 FINDINGS: Imaging was performed in the sagittal, coronal, and axial planes. The spleen is mildly enlarged measuring 12.3 cm. There is a 15 mm right renal cyst. No solid renal masses are visualized. There is no hydronephrosis. No gallstones are visualized. There is a 9 cm hypovascular infiltrative right lobe hepatic mass with secondary portal vein thrombus. The mass results in several areas of mild intrahepatic biliary ductal dilatation. There is no extrahepatic biliary ductal dilatation. Likely diagnostic considerations include intrahepatic cholangiocarcinoma versus a hepatocellular carcinoma. The mass demonstrates restricted water diffusion. The absence of fat, the absence of a fibrous capsule, and the subtle delayed enhancement, are findings which would favor an intrahepatic cholangiocarcinoma over a poorly differentiated hepatocellular carcinoma. No pancreatic masses are visualized. There are no areas of suspicious marrow replacement. There is no pathologic adenopathy by size criteria. IMPRESSION: 1. 9 cm hypovascular infiltrative right hepatic lobe mass with apparent direct extension into the portal vein with portal vein thrombus. Likely diagnostic considerations include intrahepatic cholangiocarcinoma, or hepatocellular carcinoma. As stated above, the absence of fat, the absence of a fibrous capsule, and a subtle delayed enhancement are findings which would favor intrahepatic cholangiocarcinoma over a poorly differentiated hepatocellular carcinoma Biopsy should be considered for definitive diagnosis. Electronically signed by: George Haskins M.D. 04/28/2017 1:01 PM Dictated Date/Time: 04/28/2017 11:59 AM
--- NOTE | 2017-04-28 17:24 | Surgery Consultation ---
Consultation Date of Consultation: Apr 28, 2017. Attending Physician: Dwight Chaudhary M.D. History of Present Illness Chan Banegas is a 66 year old man with history of Hep C cirrhosis (diagnosed 5 years ago, patient stated he went through treatment and was "cleared). Was in his usual state of health until 5 days ago, when he started having bilateral low abdominal pain. Initially thought it was a GI virus (symptoms had been going around his office). Pain persisted and worsened 2 days ago. With worsening pain, he has had decreased appetite and nausea. States he has been taking ibuprofen for the pain, with minimal relief. Also had constipation - took some stool softeners, and did eventually move his bowels. Noted increased abdominal pain after eating (low abdomen), but no increase in pain with BM. Denies melena / hematochezia / acholic stools. He was seen by his PCP yesterday , and advised if pain worsened to present to the ED. Last night the pain worsened and he began having nausea and vomiting, so he presented to the ED. A CT scan was completed, which showed portal vein thrombosis and a liver mass. An MRI was then completed for further evaluation of the mass - was found to have a 9cm hypovascular infiltrating right hepatic lobe mass with direct extension into the portal vein and portal vein thrombosis. He was started on a heparin drip and remains NPO. Denies fever, chills, headaches, dizziness, vision changes, chest pain, SOB, jaundice, pruritis, dark urine / dysuria or urinary symptoms, pain / numbness / swelling / tingling in extremities. Only prior surgery was laparoscopic right inguinal hernia repair. Admits to current occasional alcohol use. Past Medical/Surgical History Past Medical History: 1. Hepatitis C 2. Hypertension 3. Asthma Past Surgical History: 1. Complete colonoscopy 2. Laparoscopic inguinal hernia repair Family History Patient reports no known family medical history. Social History Smoking Status: Current Every Day Smoker Marital Status: Housing Status: lives with significant other Occupation Status: retired Allergies Coded Allergies: No Known Allergies (Unverified , 04/27/17) Home Medications Scheduled Aspirin (Aspirin), 325 MG PO DAILY Bioflavonoid Products (Yue-C), 1 TAB PO DAILY Cholecalciferol (Vitamin D 1000 Unit), 1,000 INTER.UNIT PO DAILY Diltiazem HCl Coated Beads (Diltiazem HCl ER), 180 MG PO BID Fluticasone Propionate (Nasal) (Flonase Allergy Relief), 1-2 SPRAYS EFRA DAILY Hydrochlorothiazide (Hydrochlorothiazide), 25 MG PO DAILY Montelukast Sod (Montelukast Sodium), 10 MG PO DAILY Multiple Vitamin (Multi-Day Vitamins), 1 TAB PO DAILY Sertraline HCl (Sertraline HCl), 50 MG PO DAILY Scheduled PRN Albuterol Hfa (Ventolin Hfa), 1-2 PUFFS INH Q6H PRN for SOB/Wheezing Loratadine (Claritin), 10 MG PO DAILY PRN for allergies Zolpidem Tartrate (Ambien), 5 MG PO HS PRN for Insomnia Current Inpatient Medications Current Inpatient Medications Medications (Trade) Dose Ordered Sig/Lizandro Route Start Time Stop Time Status Last Admin Dose Admin Ioversol (Optiray 320) 100 ml UD PRN IV 04/28/17 00:15 05/02/17 00:14 Hydromorphone HCl (Dilaudid Inj) 1 mg Q3H PRN IV 04/28/17 02:30 05/12/17 02:29 04/28/17 14:30 1 MG Albuterol (Ventolin Hfa Inhaler) 2 puffs Q6H PRN INH 04/28/17 02:30 05/28/17 02:29 Hydrochlorothiazide (Hydrochlorothiazide Tab) 25 mg DAILY PO 04/28/17 09:00 05/28/17 08:59 Loratadine (Claritin Tab) 10 mg DAILY PRN PO 04/28/17 02:30 05/28/17 02:29 Montelukast Sodium (Singulair Tab) 10 mg DAILY PO 04/28/17 09:00 05/28/17 08:59 Sertraline HCl (Zoloft Tab) 50 mg DAILY PO 04/28/17 09:00 05/28/17 08:59 Zolpidem Tartrate (Ambien Tab) 5 mg HS PRN PO 04/28/17 02:30 05/28/17 02:29 Diltiazem HCl (Dilacor Xr Cap) 180 mg BID PO 04/28/17 09:00 05/28/17 08:59 Acetaminophen (Tylenol Tab) 650 mg Q4H PRN PO 04/28/17 02:30 05/28/17 02:29 Al Hydrox/Mg Hydrox/Simethicone (Maalox Max Susp) 15 ml Q4H PRN PO 04/28/17 02:30 05/28/17 02:29 Magnesium Hydroxide (Milk Of Magnesia Susp) 30 ml Q6H PRN PO 04/28/17 02:30 05/28/17 02:29 Polyethylene (Miralax Powder Packet) 17 gm DAILY PRN PO 04/28/17 02:30 05/28/17 02:29 Ondansetron HCl (Zofran Inj) 4 mg Q6H PRN IV 04/28/17 02:30 05/28/17 02:29 Heparin Sodium/ Dextrose 500 ml @ 34 mls/hr [id number] PRN IV 04/28/17 04:30 05/28/17 04:29 04/28/17 16:45 34 MLS/HR Heparin Sodium (Porcine) 3000 unit/Syringe 3 ml @ 10 mls/min TODAY@1015 IV 04/28/17 10:15 05/28/17 10:20 04/28/17 10:28 10 MLS/MIN Review of Systems Constitutional: No fever, No chills, No sweats, No weight loss, No weakness Eyes: No worsening of vision, No eye pain Respiratory: No cough, No sputum, No shortness of breath, No dyspnea on exertion Cardiovascular: No chest pain, No edema, No palpitations Abdomen: + pain, + nausea, + vomiting, + constipation Musculoskeletal: No swelling Genitourinary - Male: No hematuria, No dysuria, No urinary frequency, No urinary urgency Integumentary: No itch Physical Exam Date Time Temp Pulse Resp B/P (MAP) Pulse Ox O2 Delivery O2 Flow Rate FiO2 04/28/17 16:35 70 168/87 (114) 04/28/17 15:12 37.1 64 18 158/88 (111) 91 Room Air 04/28/17 07:20 36.9 68 18 149/84 (105) 95 Room Air 04/28/17 07:10 Room Air 04/28/17 03:20 Room Air 04/28/17 03:20 37.1 78 16 148/80 (102) 92 Room Air 04/28/17 03:20 Room Air 04/28/17 03:09 68 18 137/82 92 04/28/17 03:02 68 18 137/82 92 Room Air 04/28/17 01:49 74 18 149/78 94 Room Air 04/27/17 23:53 36.6 82 18 164/83 95 Room Air General Appearance: WD/WN, no apparent distress Head: normocephalic, atraumatic Eyes: normal inspection Neck: supple Respiratory/Chest: lungs clear, normal breath sounds, no respiratory distress Cardiovascular: regular rate, rhythm, no edema Abdomen/GI: normal bowel sounds, non tender, soft (no rebound / guarding) Extremities/Musculoskelatal: normal inspection Skin: normal color, warm/dry Laboratory Results Last 24 Hours Test 04/28/17 00:20 04/28/17 03:50 04/28/17 09:13 White Blood Count 10.10 K/uL Red Blood Count 4.58 M/uL Hemoglobin 14.1 g/dL Hematocrit 42.3 % Mean Corpuscular Volume 92.4 fL Mean Corpuscular Hemoglobin 30.8 pg Mean Corpuscular Hemoglobin Concent 33.3 g/dl Platelet Count 213 K/uL Mean Platelet Volume 10.2 fL Neutrophils (%) (Auto) 75.0 % Lymphocytes (%) (Auto) 14.4 % Monocytes (%) (Auto) 7.9 % Eosinophils (%) (Auto) 2.0 % Basophils (%) (Auto) 0.3 % Neutrophils # (Auto) 7.58 K/uL Lymphocytes # (Auto) 1.45 K/uL Monocytes # (Auto) 0.80 K/uL Eosinophils # (Auto) 0.20 K/uL Basophils # (Auto) 0.03 K/uL RDW Standard Deviation 47.8 fL RDW Coefficient of Variation 14.0 % Immature Granulocyte % (Auto) 0.4 % Immature Granulocyte # (Auto) 0.04 K/uL Prothrombin Time 10.8 SECONDS Prothromb Time International Ratio 1.0 Activated Partial Thromboplast Time 26.4 SECONDS 44.1 SECONDS Partial Thromboplastin Ratio 1.0 1.7 Sodium Level 138 mmol/L Potassium Level 3.2 mmol/L Chloride Level 104 mmol/L Carbon Dioxide Level 25 mmol/L Anion Gap 9.0 mmol/L Blood Urea Nitrogen 16 mg/dl Creatinine 0.98 mg/dl Est Creatinine Clear Calc Drug Dose 89.3 ml/min Estimated GFR () 92.1 Estimated GFR (Non- 79.5 BUN/Creatinine Ratio 16.6 Random Glucose 119 mg/dl Calcium Level 9.3 mg/dl Total Bilirubin 1.3 mg/dl Direct Bilirubin 0.6 mg/dl Aspartate Amino Transf (AST/SGOT) 189 U/L Alanine Aminotransferase (ALT/SGPT) 218 U/L Alkaline Phosphatase 343 U/L Total Protein 7.7 gm/dl Albumin 4.0 gm/dl Lipase 152 U/L Urine Color DK YELLOW Urine Appearance CLEAR Urine pH 5.5 Urine Specific [place] > 1.045 Urine Protein NEG Urine Glucose (UA) NEG Urine Ketones NEG Urine Occult Blood NEG Urine Nitrite NEG Urine Bilirubin NEG Urine Urobilinogen NEG Urine Leukocyte Esterase NEG Urine WBC (Auto) 1-5 /hpf Urine RBC (Auto) 0-4 /hpf Urine Hyaline Casts (Auto) 1-5 /lpf Urine Epithelial Cells (Auto) 0-5 /lpf Urine Bacteria (Auto) NEG 04/28/17 CT Abd / Pelvis with IV contrast (no PO): IMPRESSION: 1. Extensive tumor thrombus within the right portal vein extending into the left and main portal veins. Evaluation for discrete margins of an intrahepatic mass is limited given the single phase of contrast. Within this limitation, this is highly concerning for hepatocellular carcinoma. The presence of multifocal intrahepatic biliary ductal dilatation could raise suspicion for cholangiocarcinoma or hepatocholangiocarcinoma, although the presence of intrahepatic biliary ductal dilatation is more likely related to mass effect from tumor thrombus at the liver hilum on the biliary confluence. Dedicated liver imaging with CT or MR is recommended to better stage disease burden. 2. Hyperdense material within the central bile ducts could suggest inspissated bile or enhancing soft tissue. This could also be better evaluated with dedicated liver imaging. 3. Borderline enlarged upper abdominal lymph nodes. 4. Nonspecific trace retroperitoneal fluid. The etiology for this is not immediately clear. Correlate with lipase to exclude pancreatitis. 5. Irregular solid nodule measuring 14 mm in the lingula. Follow-up per Donna Society 2017 recommendations below. 04/28/17 Liver MRI: IMPRESSION: 1. 9 cm hypovascular infiltrative right hepatic lobe mass with apparent direct extension into the portal vein with portal vein thrombus. Likely diagnostic considerations include intrahepatic cholangiocarcinoma, or hepatocellular carcinoma. As stated above, the absence of fat, the absence of a fibrous capsule, and a subtle delayed enhancement are findings which would favor intrahepatic cholangiocarcinoma over a poorly differentiated hepatocellular carcinoma Biopsy should be considered for definitive diagnosis. Assessment & Plan Chan Banegas is a 66 year old man with history of Hep C, HTN who was admitted with abdominal pain, found to have portal vein thrombosis and a large right hepatic liver mass with direct extension into the portal vein. Unclear if hepatocellular carcinoma vs cholangiocarcinoma. -No acute surgical intervention indicated at this time -Heparin drip for portal vein thrombus has already been initiated -Need tissue biopsy of liver mass - IR needle guided biopsy would be ideal -Agree with GI consultation / recommendations, check AFP -OK for ice chips and PO medications -Would recommend transfer to tertiary care center for IR biopsy of liver mass and further evaluation by oncology -Discussed with patient, who would prefer transfer to [facility] in [place] -Discussed with primary team Isela Mayes MD 04/28/17
[2017-04-28] MEDS ORDERED: NURSING VERBAL MED ORDER ONE (17:30)
[2017-04-28] MEDS ORDERED: HYDROCHLOROTHIAZIDE 25 MG TAB PO STA (17:33)
[2017-04-28] MEDS ORDERED: DILTIAZEM HCL 120 MG ER CAP PO SCH (17:45)
[2017-04-28 18:04] LABS: PARTIAL THROMBOPLASTIN RATIO 2.3
--- NOTE | 2017-04-28 18:46 | Progress Note ---
Progress Note Date of Service Apr 28, 2017. Progress Note 66 yo male who is admitted with 9 cm mass in right hepatic lobe. Consulted GI and General Surgery and discussed case with both. Patient will require Interventional radiology and Oncology with hepatobilairy program specialist. These services are not provided at this center which is why patient will be sent to [facility] in [place]. I discussed case with accepting physiciasn in [place], Dr. Velázquez who accepts patient. Orders are complete and patient will travel via [place]. Will continue with heparin drip. Informed patient of plan who agrees. 04/28/17 CT Abd / Pelvis with IV contrast (no PO): IMPRESSION: 1. Extensive tumor thrombus within the right portal vein extending into the left and main portal veins. Evaluation for discrete margins of an intrahepatic mass is limited given the single phase of contrast. Within this limitation, this is highly concerning for hepatocellular carcinoma. The presence of multifocal intrahepatic biliary ductal dilatation could raise suspicion for cholangiocarcinoma or hepatocholangiocarcinoma, although the presence of intrahepatic biliary ductal dilatation is more likely related to mass effect from tumor thrombus at the liver hilum on the biliary confluence. Dedicated liver imaging with CT or MR is recommended to better stage disease burden. 2. Hyperdense material within the central bile ducts could suggest inspissated bile or enhancing soft tissue. This could also be better evaluated with dedicated liver imaging. 3. Borderline enlarged upper abdominal lymph nodes. 4. Nonspecific trace retroperitoneal fluid. The etiology for this is not immediately clear. Correlate with lipase to exclude pancreatitis. 5. Irregular solid nodule measuring 14 mm in the lingula. Follow-up per Donna Society 2017 recommendations below. 04/28/17 Liver MRI: IMPRESSION: 1. 9 cm hypovascular infiltrative right hepatic lobe mass with apparent direct extension into the portal vein with portal vein thrombus. Likely diagnostic considerations include intrahepatic cholangiocarcinoma, or hepatocellular carcinoma. As stated above, the absence of fat, the absence of a fibrous capsule, and a subtle delayed enhancement are findings which would favor intrahepatic cholangiocarcinoma over a poorly differentiated hepatocellular carcinoma Biopsy should be considered for definitive diagnosis.
[2017-04-28] MEDS ORDERED: SODIUM CHLORIDE 0.9% 1000ML 1,000 ML IV SCH (19:00)
--- NOTE | 2017-04-28 19:09 | DIAGNOSTIC IMAGING REPORT ---
ABDOMINAL ULTRASOUND, RIGHT UPPER QUADRANT HISTORY: liver mass. COMPARISON: Abdominal MRI 04/28/2017. FINDINGS: Pancreas: The pancreatic head and tail are obscured by overlying bowel gas. The remaining portions of the pancreas are within normal limits. Liver: Heterogeneous appearance of the right hepatic lobe is consistent with the ill-defined mass which is better appreciated on the prior studies. Portal vein thrombosis is again noted. Gallbladder: No gallbladder wall thickening. Sludge-filled gallbladder. CBD: 5 mm. Right kidney: No hydronephrosis. IMPRESSION: 1. Heterogeneous appearance to the right hepatic lobe corresponds to the infiltrative mass on the prior studies. 2. Thrombosed main portal vein, unchanged. 3. Sludge-filled gallbladder. Electronically signed by: Stephen Arambula M.D. 04/28/2017 7:08 PM Dictated Date/Time: 04/28/2017 7:00 PM
[2017-04-29] MEDS: HYDROmorphone INJ 1 MG/ML SYR IV PRN (00:20)
[2017-04-29] MEDS ORDERED: HYDROCHLOROTHIAZIDE 25 MG TAB PO SCH (09:00)
[2017-04-29 16:35] LABS: HEPATITIS BE ANTIGEN TC 555 Nonreactive
--- NOTE | 2017-04-29 16:47 | Discharge Summary ---
Discharge Summary Date of Service Apr 29, 2017. Discharge Summary Admission Date: Apr 28, 2017 at 02:31 Discharge Date: Apr 29, 2017 Discharge Disposition: Acute care facility Principal Diagnosis: Hepatic Mass Problems/Secondary Diagnoses: Portal Vein Thrombosis, HTN Discharge Exam Review of Systems: Constitutional: No fever, No chills, No sweats Eyes: No worsening of vision, No eye pain ENT: No hearing loss, No unusual epistaxis Respiratory: No cough, No sputum, No wheezing Cardiovascular: No chest pain, No orthopnea, No PND Abdomen: No pain, No nausea, No vomiting Musculoskeletal: No joint pain, No muscle pain Genitourinary - Female: No dysuria, No urinary frequency Genitourinary - Male: No dysuria Physical Exam: General Appearance: WD/WN, no apparent distress Eyes: normal inspection, PERRL, EOMI ENT: normal ENT inspection, hearing grossly normal Neck: supple, no adenopathy Respiratory/Chest: chest non-tender, lungs clear, normal breath sounds Cardiovascular: regular rate, rhythm, no edema, no gallop Abdomen / GI: normal bowel sounds, non tender, soft Skin: normal color Hospital Course Progress Note 66 yo male who is admitted with 9 cm mass in right hepatic lobe. Consulted GI and General Surgery and discussed case with both. Patient will require Interventional radiology and Oncology with hepatobilairy senior contract specialist. These services are not provided at this center which is why patient will be sent to [facility] in [place]. I discussed case with accepting physiciasn in [place], Dr. Velázquez who accepts patient. Orders are complete and patient will travel via [place]. Will continue with heparin drip. Informed patient of plan who agrees. 04/28/17 CT Abd / Pelvis with IV contrast (no PO): IMPRESSION: 1. Extensive tumor thrombus within the right portal vein extending into the left and main portal veins. Evaluation for discrete margins of an intrahepatic mass is limited given the single phase of contrast. Within this limitation, this is highly concerning for hepatocellular carcinoma. The presence of multifocal intrahepatic biliary ductal dilatation could raise suspicion for cholangiocarcinoma or hepatocholangiocarcinoma, although the presence of intrahepatic biliary ductal dilatation is more likely related to mass effect from tumor thrombus at the liver hilum on the biliary confluence. Dedicated liver imaging with CT or MR is recommended to better stage disease burden. 2. Hyperdense material within the central bile ducts could suggest inspissated bile or enhancing soft tissue. This could also be better evaluated with dedicated liver imaging. 3. Borderline enlarged upper abdominal lymph nodes. 4. Nonspecific trace retroperitoneal fluid. The etiology for this is not immediately clear. Correlate with lipase to exclude pancreatitis. 5. Irregular solid nodule measuring 14 mm in the lingula. Follow-up per Donna Society 2017 recommendations below. 04/28/17 Liver MRI: IMPRESSION: 1. 9 cm hypovascular infiltrative right hepatic lobe mass with apparent direct extension into the portal vein with portal vein thrombus. Likely diagnostic considerations include intrahepatic cholangiocarcinoma, or hepatocellular carcinoma. As stated above, the absence of fat, the absence of a fibrous capsule, and a subtle delayed enhancement are findings which would favor intrahepatic cholangiocarcinoma over a poorly differentiated hepatocellular carcinoma Biopsy should be considered for definitive diagnosis. Below is the HPI History & Physical Date & Time of Service: Apr 28, 2017 at 02:43 Chief Complaint: Stomach And Back Pain Primary Care Physician: Mario Alberto Stevens M.D. History of Present Illness Source: patient 66 y/o M Hx HTN, asthma, Hep C - curative treatment completed in 2004, cirrhosis. Pt presents with lower quadrant abdominal pain which has been present and progressive for > 1 weeK. He denies diarrhea, vomiting or fevers, admits to nausea. A CT abdomen was obtained in the ER revealing portal vein thrombosis, cirrhosis and concern for hepatocellular CA. Past Medical/Surgical History Medical Problems: (1) Hepatitis C - treated in 2004 - unsure of agent which was used - likely interferon at that time Status: Resolved 2) HTN 3) Asthma 4) Hernia repair Family History Patient reports no known family medical history. Father due to an MVA at a young age Mother due to a CVA in her 80s Social History Pt smokes a few cigarettes or a cigar daily - drink 1-2 beers daily Smoking Status: Current Some Day Smoker Marital Status: Occupational Status: retired Multi-Drug Resistant Organisms History of MDRO: No Allergies Coded Allergies: No Known Allergies (Unverified , 04/27/17) Home Medications Scheduled Aspirin (Aspirin), 325 MG PO DAILY Bioflavonoid Products (Yue-C), 1 TAB PO DAILY Cholecalciferol (Vitamin D 1000 Unit), 1,000 INTER.UNIT PO DAILY Diltiazem HCl Coated Beads (Diltiazem HCl ER), 180 MG PO BID Fluticasone Propionate (Nasal) (Flonase Allergy Relief), 1-2 SPRAYS EFRA DAILY Hydrochlorothiazide (Hydrochlorothiazide), 25 MG PO DAILY Montelukast Sod (Montelukast Sodium), 10 MG PO DAILY Multiple Vitamin (Multi-Day Vitamins), 1 TAB PO DAILY Sertraline HCl (Sertraline HCl), 50 MG PO DAILY Scheduled PRN Albuterol Hfa (Ventolin Hfa), 1-2 PUFFS INH Q6H PRN for SOB/Wheezing Loratadine (Claritin), 10 MG PO DAILY PRN for allergies Zolpidem Tartrate (Ambien), 5 MG PO HS PRN for Insomnia Review of Systems Constitutional: No fever, No chills, No sweats Eyes: No worsening of vision ENT: No hearing loss, No unusual epistaxis, No nasal symptoms Respiratory: No cough, No sputum, No wheezing Cardiovascular: No chest pain, No orthopnea, No PND Abdomen: + pain, + nausea, No vomiting, No diarrhea Musculoskeletal: No joint pain Genitourinary - Male: No hematuria, No dysuria Physical Ex - H&P Physical Exam Vital Signs Date Time Temp Pulse Resp B/P (MAP) Pulse Ox O2 Delivery O2 Flow Rate FiO2 04/28/17 01:49 74 18 149/78 94 Room Air 04/27/17 23:53 36.6 82 18 164/83 95 Room Air General Appearance: WD/WN, no apparent distress Head: normocephalic Eyes: normal inspection, EOMI ENT: normal ENT inspection, pharynx normal Neck: supple, no JVD Respiratory/Chest: chest non-tender, lungs clear, normal breath sounds Cardiovascular: regular rate, rhythm, no edema, no gallop, no JVD, no murmur Abdomen/GI: normal bowel sounds, soft, + tenderness (mild in lower quadrants) Back: normal inspection, no CVA tenderness, no muscle spasm 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, no motor/sensory deficits, alert, normal mood/affect, normal reflexes, oriented x 3 Skin: normal color, warm/dry Diagnostics - H&P Diagnostics Laboratory Results Results Past 24 Hours Test 04/28/17 00:20 Range/Units White Blood Count 10.10 4.8-10.8 K/uL Red Blood Count 4.58 4.7-6.1 M/uL Hemoglobin 14.1 14.0-18.0 g/dL Hematocrit 42.3 42-52 % Mean Corpuscular Volume 92.4 80-100 fL Mean Corpuscular Hemoglobin 30.8 25-34 pg Mean Corpuscular Hemoglobin Concent 33.3 32-36 g/dl Platelet Count 213 130-400 K/uL Mean Platelet Volume 10.2 7.4-10.4 fL Neutrophils (%) (Auto) 75.0 % Lymphocytes (%) (Auto) 14.4 % Monocytes (%) (Auto) 7.9 % Eosinophils (%) (Auto) 2.0 % Basophils (%) (Auto) 0.3 % Neutrophils # (Auto) 7.58 1.4-6.5 K/uL Lymphocytes # (Auto) 1.45 1.2-3.4 K/uL Monocytes # (Auto) 0.80 0.11-0.59 K/uL Eosinophils # (Auto) 0.20 0-0.5 K/uL Basophils # (Auto) 0.03 0-0.2 K/uL RDW Standard Deviation 47.8 36.4-46.3 fL RDW Coefficient of Variation 14.0 11.5-14.5 % Immature Granulocyte % (Auto) 0.4 % Immature Granulocyte # (Auto) 0.04 0.00-0.02 K/uL Prothrombin Time 10.8 9.0-12.0 SECONDS Prothromb Time International Ratio 1.0 0.9-1.1 Activated Partial Thromboplast Time 26.4 21.0-31.0 SECONDS Partial Thromboplastin Ratio 1.0 Sodium Level 138 136-145 mmol/L Potassium Level 3.2 3.5-5.1 mmol/L Chloride Level 104 98-107 mmol/L Carbon Dioxide Level 25 21-32 mmol/L Anion Gap 9.0 3-11 mmol/L Blood Urea Nitrogen 16 7-18 mg/dl Creatinine 0.98 0.60-1.40 mg/dl Est Creatinine Clear Calc Drug Dose 89.3 ml/min Estimated GFR () 92.1 Estimated GFR (Non- 79.5 BUN/Creatinine Ratio 16.6 10-20 Random Glucose 119 70-99 mg/dl Calcium Level 9.3 8.5-10.1 mg/dl Total Bilirubin 1.3 0.2-1 mg/dl Direct Bilirubin 0.6 0-0.2 mg/dl Aspartate Amino Transf (AST/SGOT) 189 15-37 U/L Alanine Aminotransferase (ALT/SGPT) 218 12-78 U/L Alkaline Phosphatase 343 45-117 U/L Total Protein 7.7 6.4-8.2 gm/dl Albumin 4.0 3.4-5.0 gm/dl Lipase 152 73-393 U/L Diagnostic Radiology CT abdomen: Portal vein thrombosis Cirrhosis Possible lesion (HCC) in R lobe of liver Impression - H&P Impression Assessment and Plan 66 y/o M Hx HTN, asthma, Hep C - curative treatment completed in 2004, cirrhosis. Pt presents with lower quadrant abdominal pain which has been present and progressive for > 1 weeK. He denies diarrhea, vomiting or fevers, admits to nausea. A CT abdomen was obtained in the ER revealing portal vein thrombosis, cirrhosis and concern for hepatocellular CA. 1) Portal vein thrombosis - pt placed on Heparin, GI consult requested 2) Concern for hepatocellular CA - we will obtain a dedicated liver MRI - GI is consulted 3) HTN - HCTZ held pending AM reevaluation - cont Diltiazem 4) Cirrhosis - pt was not aware of this - likely due to previous hep C - f/u with GI - does not currently display stigmata of advanced cirrhosis Full code - full dose Heparin Total time for this admit including review of labs, meds, imaging - discussion with pt and ER attending - 37 min Total Time Spent: Greater than 30 minutes This includes examination of the patient, discharge planning, medication reconciliation, and communication with other providers. Discharge Instructions Please refer to the electronic Patient Visit Report (Discharge Instructions) for additional information.
[2017-04-30 12:33] LABS: HEPATITIS C RNA TMA QUAL Not detected
[2017-04-30 23:57] LABS: HEPATITIS C VIRAL RNA BY PCR <15 NOT DETECTED IU/ML (<15); HEPATITIS C VIRAL RNA(LOG) PCR <1.18 NOT DETECTED LOG IU/ML (<1.18)
== END 2017-04-29 00:25 | disposition short-term general hospital (02) | DRG 435 ==
LOC: C.EDB 23:51 → C.MSN 04-28 02:31 → ENRESERV 04-28 02:38
PROVIDERS: ADMIT Internal Medicine; ATTEND Internal Medicine
DX: C22.0 Liver cell carcinoma (principal); I81 Portal vein thrombosis; I10 Essential (primary) hypertension; K74.60 Unspecified cirrhosis of liver; J45.909 Unspecified asthma, uncomplicated; F17.210 Nicotine dependence, cigarettes, uncomplicated; F17.290 Nicotine dependence, other tobacco product, uncomplicated; Z72.89 Other problems related to lifestyle; Z86.19 Personal history of other infectious and parasitic diseases; Z82.3 Family history of stroke; Z79.82 Long term (current) use of aspirin; Z79.899 Other long term (current) drug therapy; Z12.5 Encounter for screening for malignant neoplasm of prostate; E78.1 Pure hyperglyceridemia; R73.03 Prediabetes

== ENCOUNTER → 2017-04-27 | Outpatient (CLI) | payer OTHER ==
[2017-04-27 12:29] LABS: ALT/SGPT 242 U/L (12-78); BLOOD UREA NITROGEN 14 mg/dl (7-18); BUN/CREATININE RATIO 14.1 (10-20); CALCIUM 9.8 mg/dl (8.5-10.1); CARBON DIOXIDE 28 mmol/L (21-32); CHLORIDE 100 mmol/L (98-107); CHOLESTEROL 221 mg/dl (0-200); CREATININE 0.97 mg/dl (0.60-1.40); GLUCOSE 101 mg/dl (70-99); POTASSIUM 3.5 mmol/L (3.5-5.1); SODIUM 136 mmol/L (136-145); TRIGLYCERIDES 154 mg/dl (0-150); VERY LOW DENSITY LIPOPROT CALC 31 mg/dl
[2017-04-27 12:33] LABS: ALKALINE PHOSPHATASE 318 U/L (45-117); AST/SGOT 194 U/L (15-37); CHOLESTEROL/HDL RATIO 5.1; HDL CHOLESTEROL 43 mg/dl; LDL CHOLESTEROL CALCULATED 147 mg/dl; PROSTATE SPECIFIC ANTIGEN 0.424 ng/ml (0.000-4.000)
[2017-04-27 12:40] LABS: ESTIMATED AVERAGE GLUCOSE 111 mg/dl; HA1C FLAG Normal (Normal)
== END | disposition home or self-care (01) ==
LOC: C.LAB1850 10:44
PROVIDERS: ATTEND Internal Medicine
DX: Z12.5 Encounter for screening for malignant neoplasm of prostate (principal); E78.1 Pure hyperglyceridemia; R73.03 Prediabetes

== ENCOUNTER → 2017-06-03 | Outpatient (CLI) | payer OTHER ==
[~2017-06-03] MED LIST changes: -ALBUAER19 INH; -ASPEC81 PO; +ASPI325T45 PO; -BUSP5TAB59 PO; +CHOL100027 PO; -CHOLTAB3 PO; +DOXE10CA PO; -FLUT0.0529 NEB; +FLUT0.15 NAE; +GABA-112 PO; -HYD50 PO; +HYDR25TA5 PO; -LYSI500C2 PO; +MULT-225 PO; -MULT-884 PEG; +NALO1TAB PO; +OXYC1TAB3 PO; +SENN-61 PO; -SERT50TA PO; +SNG10 PO; +VNTHFA/IN INH; +ZLF/50 PO
== END | disposition home or self-care (01) ==
LOC: C.CPL 11:32
PROVIDERS: ATTEND Surgery
DX: C22.9 Malignant neoplasm of liver, not specified as primary or secondary (principal)

== ENCOUNTER 2017-06-04 09:43 | Day surgery (SDC) | payer OTHER ==
[2017-06-03 14:10] VITALS: BMI 29.0
[~2017-06-04] VITALS: Ht 182.9 cm; Wt 99.1 kg
[~2017-06-04 09:43] MED LIST changes: -ASPI325T45 PO; -BIOF500T PO; +CEFAZOLIN 2000MG IV PUSH 10 ML IV SCH; +LACTATED RINGER'S 1000ML 1,000 ML IV SCH; -SNG10 PO; -ZOLP5TAB PO
[2017-06-04 10:13] VITALS: BP 140/88; PULSE 77; TEMP 36.4; O2SAT 97; Ht 182.9 cm; Wt 99.1 kg
[2017-06-04] MEDS ORDERED: ONDANSETRON INJ 2 MG/ML 2 ML VIAL IV PRN ×2 (10:15→13:45)
[2017-06-04] MEDS ORDERED: LABETALOL HCL IV 5 MG/ML 20ML IV PRN (10:15)
[2017-06-04] MEDS ORDERED: ATROPINE SULFATE 0.1 MG/ML 5ML SYR IV PRN (10:15)
[2017-06-04] MEDS ORDERED: FENTANYL CITRATE INJ 50 MCG/1 ML 2 ML VIAL ONE ×2 (11:29→13:01)
[2017-06-04] MEDS ORDERED: MIDAZOLAM HCL 1 MG/ML 2ML VIAL ONE (11:29)
--- NOTE | 2017-06-04 12:12 | History & Physical Bridge Note ---
H&P Re-Evaluation Bridge Note: I have examined the patient, reviewed the History & Physical and in the interval since the performance of the History & Physical I have noted the following changes of clinical significance: No changes noted
[2017-06-04] MEDS ORDERED: BUPIVACAINE/EPINEPHRINE 0.5% MPF 1:200,000 30 ML VIAL ONE (12:40)
[2017-06-04] MEDS ORDERED: PROPOFOL IV EMULSION 10 MG/ML 20 ML VIAL IV ONE (13:30)
[2017-06-04] MEDS ORDERED: ONDANSETRON INJ 2 MG/ML 2 ML VIAL ONE (13:30)
[2017-06-04] MEDS ORDERED: LIDOCAINE HCL 2% 2 ML VIAL (20MG/ML) ONE (13:30)
[2017-06-04] MEDS ORDERED: SODIUM CHLORIDE 0.9% 1000ML 1,000 ML IV SCH (13:36)
--- NOTE | 2017-06-04 13:40 | [facility] Operative Report ---
Operative Report Operative Date Jun 04, 2017. Pre-Operative Diagnosis 1. Primary hepatocellular carcinoma of the liver 2. Ascites Post-Operative Diagnosis 1. Primary hepatocellular carcinoma of the liver 2. Ascites Procedure(s) Performed Placement of Abdominal Pleurx Catheter Surgeon Dr. Gal Natarajan [employer] Store Checker Surgeon(s) Jaylyn Villafana PA-C Estimated Blood Loss 3 mL Findings ascites, jessica colored. Specimens Cytology #1. Peritoneal Fluid Cell count Microbiology #1. Peritoneal Fluid Routine C/S, Anerobic/Aerobic/Gram stain Anesthesia MAC/local Complication(s) None Disposition Recovery Room / PACU Description of Procedure After informed consent was obtained the patient was taken the operating room and placed in supine position. IV sedation was administered by anesthesia and the abdomen was sterilely prepped and draped in usual fashion. We created a skin wheal on the skin and then using an 18-gauge finder needle readily access ascitic fluid. We then advanced the guidewire and removed the finder needle. We then made a small opening several inches superior to the access point made a small incision and used a tunneling device to pull the Pleurx catheter through the subcutaneous space so that the fibrosing collar was just under the skin. We then advanced a dilator with peel-away sheath over the guidewire into the abdominal cavity. We pulled the dilator out and advanced the Pleurx catheter through it into the abdominal cavity. We did obtain jessica-colored pleural fluid. Once catheter was in place we connected to vacuum container withdrew 2000 mL of fluid. He tolerated this nicely without a drop in his blood pressure. Once the catheter was in place I used a U stitch to place around the insertion site as well as to the exit site and secured it with a 2-0 silk stitch to the catheter itself. Sterile dressings were applied. The patient was awaken and transferred recovery in stable condition I attest to the content of the Intraoperative Record and any orders documented therein. Any exceptions are noted below.
--- NOTE | 2017-06-04 13:41 | Discharge Instructions ---
Discharge Instructions Date of Service Jun 04, 2017. Admission Reason for Admission: Hepatocellular Carcinoma Discharge Discharge Diagnosis / Problem: Hepatocellular Carcinoma Discharge Goals Goal(s): Decrease discomfort, Improve function Activity Recommendations Activity Limitations: as noted below Lifting Limitations: gradually increase as tolerated Exercise/Sports Limitations: gradually increase as tolerated May Resume Sexual Activity: when tolerated Shower/Bathe: tomorrow Driving or Machine Use: resume 1 day after discharge . Instructions / Follow-Up Instructions / Follow-Up Please follow-up with Dr. Natarajan in the office in 1-2 weeks. Please call the office at [phone] to make a follow-up appointment if you do not have one already. Please call the office with any questions or concerns. Current Hospital Diet Patient's current hospital diet: Discharge Diet Recommended Diet: Regular Diet Procedures Procedures Performed: Placement of Abdominal Pleurx Catheter Pending Studies Studies pending at discharge: yes List of pending studies: Culture report. Laboratory Results Hemoglobin A1c Test 04/27/17 10:46 Range/Units Estimated Average Glucose 111 mg/dl Hemoglobin A1c 5.5 4.5-5.6 % Lipid Panel Test 04/27/17 10:46 Range/Units Triglycerides Level 154 H 0-150 mg/dl Cholesterol Level 221 H 0-200 mg/dl HDL Cholesterol 43 mg/dl Cholesterol/HDL Ratio 5.1 LDL Cholesterol, Calculated 147 mg/dl Medical Emergencies . Who to Call and When: Medical Emergencies: If at any time you feel your situation is an emergency, please call 911 immediately. . Non-Emergent Contact Non-Emergency issues call your: Primary Care Provider, Surgeon Call Non-Emergent contact if: temperature is above 101.5, your pain is not controlled, wound has increased drainage, wound has increased redness . "Provider Documentation" section prepared by Jaylyn Villafana. . VTE Core Measure Inpt VTE Proph given/why not?: [facility] Drug Monitoring Program Search Results: patient reviewed within database, no issues identified
[2017-06-04] MEDS ORDERED: HYDROCODONE/ACETAMOPHEN 5/325MG TAB PO PRN ×2 (13:45)
--- NOTE | 2017-06-04 13:45 | Anesthesiology Progress Note ---
Anesthesia Post Op Note Date & Time Jun 04, 2017 at 13:45 Vital Signs Pain Intensity: 0 Vital Signs Past 12 Hours Date Time Temp Pulse Resp B/P (MAP) Pulse Ox O2 Delivery O2 Flow Rate FiO2 06/04/17 13:36 36.6 58 16 108/67 94 Room Air 06/04/17 10:13 36.4 77 20 140/88 (105) 97 Room Air Notes Mental Status: alert / awake / arousable, participated in evaluation Pt Amnestic to Procedure: Yes Nausea / Vomiting: adequately controlled Pain: adequately controlled Airway Patency, RR, SpO2: stable & adequate BP & HR: stable & adequate Hydration State: stable & adequate Anesthetic Complications: no major complications apparent
[2017-06-04] MEDS: FENTANYL CITRATE INJ 50 MCG/1 ML 2 ML VIAL IV PRN ×4 (13:48→14:03)
[2017-06-04 14:27] VITALS: BP 115/72; PULSE 59; TEMP 36.9; O2SAT 96
[2017-06-04 15:00] VITALS: BP 132/73; PULSE 64; TEMP 36.5; O2SAT 97
[2017-06-04 15:36] LABS: PERIT FL WBC 374 /uL (0-300); PERITONEAL FLUID RBC 5000 /uL
== END 2017-06-04 15:18 | disposition home or self-care (01) ==
LOC: C.ACU 09:43
PROVIDERS: ATTEND Surgery
DX: C22.0 Liver cell carcinoma (principal); R18.8 Other ascites; I10 Essential (primary) hypertension; E78.1 Pure hyperglyceridemia; K21.9 Gastro-esophageal reflux disease without esophagitis; J45.909 Unspecified asthma, uncomplicated; R73.09 Other abnormal glucose; L40.9 Psoriasis, unspecified; F41.9 Anxiety disorder, unspecified; F32.9 Major depressive disorder, single episode, unspecified; Z79.899 Other long term (current) drug therapy